=== PATIENT | female | born 1995 | race Caucasian/White ===

== ENCOUNTER → 2018-10-18 | Outpatient (CLI) | payer MEDICAID, OTHER ==
[~2018-10-18] MED LIST: CHOL200024 PO; NORE1TAB86 PO; OMEP20TA62 PO; RANI150T23 PO; VENL75TA PO
[2018-10-18 10:10] LABS: BASOPHILS # (AUTO) 0.02 x10^3/uL (0-0.1); BASOPHILS % (AUTO) 0 % (0-1); EOSINOPHILS # (AUTO) 0.17 x10^3/uL (0-0.4); EOSINOPHILS % (AUTO) 2 % (1-7); LYMPHOCYTES # (AUTO) 2.07 x10^3/uL (1-3.4); LYMPHOCYTES % (AUTO) 27 % (22-44); MD NO; MEAN CORPUSCULAR HEMOGLOBIN 29.3 pg (27.0-34.8); MEAN CORPUSCULAR VOLUME 86.3 fL (80-100); MEAN PLATELET VOLUME 8.3 fL (7.4-10.4); MONOCYTES # (AUTO) 0.63 x10^3/uL (0.2-0.8); MONOCYTES % (AUTO) 8 % (2-9); NEUTROPHILS # (AUTO) 4.71 x10^3/uL (1.8-6.8); NEUTROPHILS % (AUTO) 62 % (42-75); PLATELET COUNT 363 x10^3/uL (130-400); RED BLOOD COUNT 4.66 x10^6/uL (3.82-5.3); RED CELL DISTRIBUTION WIDTH 13.4 % (9.6-15.2)
[2018-10-18 10:21] LABS: INTERNATIONAL NORMALIZED RATIO 1.07 (0.93-1.1); PROTHROMBIN TIME 11.3 Seconds (9.6-11.5)
[2018-10-18 10:22] LABS: ALANINE AMINOTRANSFERASE 23 U/L (12-78); ALBUMIN 3.7 g/dL (3.4-5.0); ANION GAP 6 mmol/L (5-15); CALCIUM 8.5 mg/dL (8.5-10.1); CHLORIDE 107 mmol/L (98-107); CREATININE 0.66 mg/dL (0.55-1.02)
[2018-10-18 10:27] LABS: ALKALINE PHOSPHATASE 94 U/L (45-117); BILIRUBIN,TOTAL 0.5 mg/dL (0.2-1.0); TOTAL PROTEIN 7.9 g/dL (6.4-8.2)
== END | disposition home or self-care (01) ==
LOC: STAR 09:23
PROVIDERS: ATTEND Specialist
DX: Z01.818 Encounter for other preprocedural examination (principal); N83.299 Other ovarian cyst, unspecified side; R19.07 Generalized intra-abdominal and pelvic swelling, mass and lump
CPT/HCPCS: 36415; 80053; 84703; 85025; 85610; 85730

== ENCOUNTER 2018-10-22 07:04 | Day surgery (SDC) | payer MEDICAID, OTHER ==
[~2018-10-22] VITALS: Ht 157.5 cm; Wt 76.5 kg
[~2018-10-22 07:04] MED LIST changes: +BUPIVACAINE/PF 0.25% ONE
[2018-10-22] MEDS ORDERED: LACTATED RINGERS 1,000 ML IV SCH (07:53)
[2018-10-22 08:30] VITALS: BP 148/92
[2018-10-22] MEDS ORDERED: FENTANYL PF 250 MCG/5ML ONE (08:55)
[2018-10-22] MEDS ORDERED: MIDAZOLAM 1 MG/ML, 2ML ONE ×2 (08:55→12:44)
[2018-10-22] MEDS ORDERED: ACETAMINOPHEN 500 MG TABLET PO ONE (10:30)
[2018-10-22] MEDS ORDERED: GABAPENTIN 300 MG CAPSULE PO ONE (10:30)
[2018-10-22] MEDS ORDERED: PROPOFOL 10 MG/ML, 20ML ONE (10:33)
[2018-10-22] MEDS ORDERED: ROCURONIUM 10MG/ML,5ML ONE (10:34)
[2018-10-22] MEDS ORDERED: DEXAMETHASONE 4 MG/ML, 1ML ONE (10:36)
[2018-10-22] MEDS ORDERED: CEFOTETAN 2 GM ONE (10:39)
[2018-10-22] MEDS ORDERED: OXYcodone 5 MG/5 ML ORAL.SOL UDC PO PRN (11:00)
[2018-10-22] MEDS ORDERED: MEPERIDINE/PF 25MG/0.5ML IVPush PRN (11:00)
[2018-10-22] MEDS ORDERED: HYDROmorphone 2 MG/ML, 1ML IVPush PRN (11:00)
[2018-10-22] MEDS ORDERED: LABETALOL 5MG/ML, 20ML IV PRN (11:00)
[2018-10-22] MEDS ORDERED: hydrALAzine 20 MG/ML, 1ML IV PRN (11:00)
[2018-10-22] MEDS ORDERED: PROMETHAZINE 25 MG/ML, 1ML IV PRN (11:00)
[2018-10-22] MEDS ORDERED: ONDANSETRON 2MG/ML, 2ML IV PRN (11:00)
[2018-10-22] MEDS ORDERED: EPINEPHRINE 1 MG/ML, 1ML INFIL ONE (11:30)
[2018-10-22] MEDS ORDERED: INTERCEED 3 X 4 INCH DRESSING ONE (12:15)
[2018-10-22] MEDS ORDERED: FENTANYL PF 100 MCG/2ML ONE ×2 (12:17→12:44)
[2018-10-22] MEDS ORDERED: ONDANSETRON 2MG/ML, 2ML ONE (12:18)
[2018-10-22] MEDS: FENTANYL PF 100 MCG/2ML IV PRN ×2 (12:47→12:56)
[2018-10-22] MEDS ORDERED: MIDAZOLAM 1 MG/ML, 2ML IVPush PRN (13:00)
[2018-10-22] MEDS ORDERED: OXYcodone 5 MG/5 ML ORAL.SOL UDC ONE (13:04)
[2018-10-22] MEDS ORDERED: LABETALOL 20 MG/4 ML ONE (13:35)
== END 2018-10-22 15:15 | disposition home or self-care (01) ==
LOC: OUT 07:04
PROVIDERS: ATTEND Specialist
DX: D27.1 Benign neoplasm of left ovary (principal); D27.0 Benign neoplasm of right ovary; K21.9 Gastro-esophageal reflux disease without esophagitis; G43.909 Migraine, unspecified, not intractable, without status migrainosus; Z98.890 Other specified postprocedural states; Z01.810 Encounter for preprocedural cardiovascular examination; Z87.442 Personal history of urinary calculi
CPT/HCPCS: 36415; 58662; 74018; 86850; 86900; 88305; C1765; J0171; J1100; J2250; J2405; J2704; J3010; J3490; J7120

== ENCOUNTER 2019-03-22 03:47 | Emergency (ER) | payer MEDICAID ==
[~2019-03-22] VITALS: Ht 154.9 cm; Wt 81.3 kg
[~2019-03-22 03:47] MED LIST changes: -BUPIVACAINE/PF 0.25% ONE
[2019-03-22] MEDS ORDERED: SODIUM CHLORIDE FLUSH 10ML SYR IVF ONE (04:00)
[2019-03-22] MEDS ORDERED: ONDANSETRON 2MG/ML, 2ML IVPush ONE (04:00)
[2019-03-22] MEDS ORDERED: SODIUM CHLORIDE 0.9% 1,000ML IVBOLUS ONE (04:00)
[2019-03-22] MEDS ORDERED: MORPHINE SULFATE 4 MG/ML, 1ML IVPush PRN (04:00)
[2019-03-22] MEDS ORDERED: KETOROLAC 30 MG/1 ML IVPush ONE (04:00)
[2019-03-22] MEDS ORDERED: MORPHINE SULFATE 4 MG/ML, 1ML ONE (04:02)
[2019-03-22] MEDS ORDERED: KETOROLAC 30 MG/1 ML ONE (04:02)
[2019-03-22] MEDS ORDERED: ONDANSETRON 2MG/ML, 2ML ONE (04:02)
[2019-03-22 04:32] LABS: CULTURE INDICATED? YES; MICROSCOPIC INDICATED
[2019-03-22 04:32] LABS: BASOPHILS # (AUTO) 0.01 x10^3/uL (0-0.1); BASOPHILS % (AUTO) 0 % (0-1); EOSINOPHILS # (AUTO) 0.37 x10^3/uL (0-0.4); EOSINOPHILS % (AUTO) 4 % (1-7); LYMPHOCYTES # (AUTO) 2.55 x10^3/uL (1-3.4); LYMPHOCYTES % (AUTO) 28 % (22-44); MD NO; MEAN CORPUSCULAR HEMOGLOBIN 27.9 pg (27.0-34.8); MEAN CORPUSCULAR HGB CONC 32.8 g/dL (32.4-35.8); MEAN CORPUSCULAR VOLUME 85.2 fL (80-100); MEAN PLATELET VOLUME 8.3 fL (7.4-10.4); MONOCYTES # (AUTO) 0.99 x10^3/uL (0.2-0.8); MONOCYTES % (AUTO) 11 % (2-9); NEUTROPHILS # (AUTO) 5.24 x10^3/uL (1.8-6.8); NEUTROPHILS % (AUTO) 57 % (42-75); PLATELET COUNT 319 x10^3/uL (130-400); RED BLOOD COUNT 4.51 x10^6/uL (3.82-5.3)
[2019-03-22] MEDS ORDERED: AMIT10TA PO (04:37)
--- NOTE | 2019-03-22 04:38 | NUR ---
FIRST CONTACT WITH PT. PT REPORTS BLOOD IN HER URINE, LEFT FLANK PAIN, CENTER ABD PAIN SINCE MIDNIGHT. PT STATES " I MIGHT BE ." EDMD NOTIFIED. PT'S AOX4. RESPS EVEN AND UNLABORED. BP/SPO2 MONITORS IN PLACE. CALL LIGHT WITHIN REACH. EDMD AT BEDSIDE TO ASSESS.
--- NOTE | 2019-03-22 04:40 | NUR ---
PT MEDICATED PER EMAR FOR NAUSEA. NS INFUSING. HOLD PAIN MEDS PER EDMD ORDER.
[2019-03-22 04:45] LABS: ALBUMIN 3.2 g/dL (3.4-5.0); ANION GAP 7 mmol/L (5-15); CALCIUM 8.7 mg/dL (8.5-10.1); CHLORIDE 108 mmol/L (98-107)
[2019-03-22 04:52] LABS: BILIRUBIN,TOTAL 0.3 mg/dL (0.2-1.0); CREATININE 0.75 mg/dL (0.55-1.02)
[2019-03-22 04:53] LABS: ALANINE AMINOTRANSFERASE 33 U/L (12-78); ALKALINE PHOSPHATASE 95 U/L (45-117); TOTAL PROTEIN 7.2 g/dL (6.4-8.2)
--- NOTE | 2019-03-22 05:14 | NUR ---
PT REFUSED ALL PAIN MEDS AT THIS TIME. PT STATES "I DON'T HAVE MUCH PAIN NOW"
[2019-03-22 06:12] VITALS: BP 126/86
--- NOTE | 2019-03-22 06:12 | NUR ---
PT SLEEPING IN [facility]. RESPS EVEN AND UNLABORED. BP/SPO2 MONITORS IN PLACE. CALL LIGHT WITHIN REACH.
--- NOTE | 2019-03-22 06:43 | NUR ---
PT AMB TO BR WITH STEADY GAIT.
--- NOTE | 2019-03-22 06:52 | NUR ---
PT GIVEN DC INSTRUCTIONS AND SCRIPTS. PT EDUCATED REGARDING DC MEDICATIONS. PT'S AOX4. RESPS EVEN AND UNLABORED. PT AMB TO DC WITH STEADY GAIT. NO ACUTE DISTRESS AT DC.
== END 2019-03-22 06:53 | disposition home or self-care (01) ==
LOC: ED 06:47
DX: N30.01 Acute cystitis with hematuria (principal)
CPT/HCPCS: 36415; 76770; 80053; 81001; 83690; 84703; 85025; 87086; 96374; 99284; J2405; J7030